=== PATIENT | female | born 1955 | race African-American/Black ===

== ENCOUNTER 2019-11-09 03:41 | Inpatient (IN) | payer MEDICARE ==
[2019-11-09] VITALS (24 sets, daily range): BP systolic 82–134; BP diastolic 55–80
[~2019-11-09] VITALS: Ht 167.6 cm; Wt 95.9 kg
[2019-11-09] MEDS ORDERED: INSULIN REGULAR VIAL 100 UNIT in IV NORMAL SALINE 100ML 100 ML IV PRN (04:30)
[2019-11-09] MEDS ORDERED: IV NORMAL SALINE 1000ML BAG 1,000 ML IV ONE ×2 (04:30→05:00)
[2019-11-09] MEDS ORDERED: IV NORMAL SALINE 1000ML BAG 1,000 ML IV SCH (04:30)
[2019-11-09 04:31] LABS: BASO % 0 % (0-3); EOS % 0 % (0-3); HEMATOCRIT 37.9 % (36.0-47.0); HEMOGLOBIN 12.6 g/dL (12.0-15.5); LYMPH # 1.4 x10^3/uL (1.0-4.8); LYMPH % 16 % (24-48); MEAN CORPUSCULAR HEMOGLOBIN 31 pg (25-35); MEAN CORPUSCULAR HGB CONC 33 g/dL (31-37); MEAN CORPUSCULAR VOLUME 93 fL (79-100); MONO # 0.3 x10^3/uL (0.0-1.1); MONO % 3 % (0-9); NEUT # 7.5 x10^3/uL (1.8-7.7); NEUT % 81 % (31-73); PLATELET COUNT 322 x10^3/uL (140-400); RED BLOOD COUNT 4.07 x10^6/uL (3.50-5.40); RED CELL DISTRIBUTION WIDTH 13.7 % (11.5-14.5); WHITE BLOOD COUNT 9.2 x10^3/uL (4.0-11.0)
[2019-11-09 04:46] LABS: ALBUMIN 4.3 g/dL (3.4-5.0); CALCIUM 9.6 mg/dL (8.5-10.1); CREATININE 3.6 mg/dL (0.6-1.0); GFR 15.4; POTASSIUM 5.5 mmol/L (3.5-5.1); TOTAL BILIRUBIN 0.3 mg/dL (0.2-1.0); TOTAL PROTEIN 8.8 g/dL (6.4-8.2)
--- NOTE | 2019-11-09 06:10 | NUR ---
[id number] Received patient to room 109 from [facility] ED via ambulance at 0330. Admission complete and all monitors applied. F/C inserted with 300cc clear yellow urine returned immediately. SCDs applied. Oriented to room, unit routines, and hospital. Dr Rodriguez called with update and critical results. Orders received and implemented. New 20g IV started to RFA per relief charge nurse. NS bolus #1 complete. Bolus #2 started. Hourly blood glucose per GlucoStabilizer started.
[2019-11-09] MEDS ORDERED: SODIUM BICARBONATE VIAL 50 MEQ in IV 1/2 NORMAL SALINE 1,000 ML IV PRN (06:23)
[2019-11-09] MEDS ORDERED: SODIUM PHOSPHATE 10 MMOL in IV NORMAL SALINE 100ML 250 ML IV PRN (06:30)
[2019-11-09] MEDS ORDERED: SODIUM PHOSPHATE 40 MMOL in IV NORMAL SALINE 500ML BAG 500 ML IV PRN (06:30)
[2019-11-09] MEDS ORDERED: POTASSIUM CHLORIDE 10MEQ 100 ML IV PRN ×3 (06:30)
[2019-11-09] MEDS ORDERED: SODIUM PHOSPHATE 20 MMOL in IV NORMAL SALINE 250ML 250 ML IV PRN (06:30)
[2019-11-09 07:09] LABS: ALBUMIN 3.8 g/dL (3.4-5.0); DIRECT BILIRUBIN 0.1 mg/dL (0.0-0.2); MAGNESIUM 3.6 mg/dL (1.8-2.4); PHOSPHORUS 3.9 mg/dL (2.6-4.7); TOTAL BILIRUBIN 0.2 mg/dL (0.2-1.0); TOTAL PROTEIN 7.8 g/dL (6.4-8.2)
[2019-11-09] MEDS: ASPIRIN CHEWABLE 81 MG TABLET. PO SCH (08:00)
[2019-11-09 08:43] LABS: CALCIUM 8.7 mg/dL (8.5-10.1); CREATININE 3.3 mg/dL (0.6-1.0); MAGNESIUM 3.3 mg/dL (1.8-2.4); PHOSPHORUS 3.5 mg/dL (2.6-4.7); POTASSIUM 4.7 mmol/L (3.5-5.1)
[2019-11-09] MEDS: MAGNESIUM SULFATE 4GM 100 ML IV SCH (09:15)
[2019-11-09] MEDS: IV 1/2 NORMAL SALINE 1,000 ML IV SCH ×3 (09:17→17:21)
[2019-11-09] MEDS: EZETIMIBE 10 MG TABLET. PO SCH (09:18)
[2019-11-09] MEDS: POTASSIUM CHLORIDE 10MEQ 100 ML IV SCH ×2 (09:24→10:17)
[2019-11-09] MEDS: ONDANSETRON PF 4 MG/2 ML VIAL. IVP PRN ×2 (10:09→17:59)
[2019-11-09] MEDS: CARVEDILOL 12.5 MG TABLET. PO SCH ×2 (10:09→17:21)
--- NOTE | 2019-11-09 11:48 | HP ---
ADMIT DATE: 11/09/2019 HISTORY OF PRESENT ILLNESS: The patient is a 64-year-old -[place] female patient who presented to the Emergency Room of [facility] with a 3-day history of diarrhea as well as generalized weakness, sweats. Also she has polyuria and polydipsia and patient stated that she has been drinking Pepsi and lemon and chinik, water does not taste good. She was evaluated in the Emergency Room and was found to have extremely high blood sugar of 1480. She has also had hyperkalemia as well as impaired kidney function with a BUN of 70, creatinine was 3.9. Her CBC was within normal range and her blood gases showed a pH of 7.32, pCO2 of 34, pO2 of 79, bicarbonate was 17 and oxygen saturation was 95% on FiO2 of 21%. Her urinalysis showed that there is large amount of glucose, trace of ketones, moderate amount of blood, trace of protein and her toxic screen showed only small amount of acetone. Her CT scan of the head was unremarkable and acute abdomen series showed that the patient has AICDs visualized. The cardiac silhouette is otherwise unremarkable. Degenerative changes of the spine. No focal airspace consolidation to suggest pneumonia. There are scattered throughout the large and small bowel is nonspecific, but not grossly obstructive pattern with some scattered mildly prominent air filled loops of bowel. The patient was started on insulin drip, given a liter of fluid and was transferred to [facility] ICU to continue with fluid replacement. Continue with insulin drip. PAST MEDICAL HISTORY: Significant for hypertension, hyperlipidemia, coronary artery disease, status post myocardial infarction in 2004 and 2006, she has also an AICD in 2014. She is not known to have type 2 diabetes. PAST SURGICAL HISTORY: Significant for AICD, left heart catheterization and stent deployment as well on left side oophorectomy. ALLERGIES: SHE IS ALLERGIC TO PENICILLIN AND CODEINE. MEDICATIONS: She is currently on following medications, Zetia 10 mg once a day, atorvastatin calcium 80 mg at bedtime, carvedilol 25 mg twice a day, chewable aspirin 81 mg once a day. She is on spironolactone 25 mg once a day. REVIEW OF SYSTEMS: As per history of present illness. The patient denied any blurring of vision, cataract, glaucoma or macular degeneration. Denied any earache, tinnitus or sensorineural deafness. Denied any nosebleeds, stuffy nose or postnasal drip. Denied any sore throat, sore tongue, toothache, hoarseness of voice or difficulty swallowing. Did complain of nausea, but no vomiting. Did have recurrent bouts of diarrhea for the last 3 days. Denied any abdominal pain. Denied any dysuria. Did complain of frequency, but denied any hematuria. Denied any chest pain, shortness of breath, orthopnea, paroxysmal nocturnal dyspnea. Denied any cough, phlegm or hemoptysis. FAMILY HISTORY: Strongly positive for diabetes, hypertension and cancer. She has about 12 siblings, 4 of them of cancer. SOCIAL HISTORY: , lives alone. She has 2 daughters. She does not smoke, drink alcohol or use any recreational drugs. She worked at the [employer] for about 25 years, she retired based on medical disability. PHYSICAL EXAMINATION: GENERAL: On arrival to the Emergency Room, she looked well and was clearly in no apparent respiratory distress. Slightly pale, but no jaundice, cyanosis or thyromegaly. No jugular venous distention. No limb edema. VITAL SIGNS: Her heart rate was 63, blood pressure was 136/76, temperature was 98.2, respiratory rate 21 and oxygen saturation was 96% on room air. HEAD, EYES, EARS, NOSE AND THROAT: Showed normocephalic, atraumatic. NECK: Supple. HEART: Showed normal first and second heart sounds with no gallop, rub or murmur. CHEST: Clear to auscultation. No crepitation or rhonchi. ABDOMEN: Distended, soft, nontender. NEUROLOGIC: She is awake, alert, and at times confused. All her cranial nerves are intact. EXTREMITIES: She moves extremities without difficulty. LABORATORY DATA: Her lab work on arrival to the Emergency Room of [facility] showed a serum sodium of 124, potassium 6.9, chloride 85, bicarbonate 20, anion gap of 19, BUN 70, creatinine 3.9, estimated GFR was 49 mL per minute. Her glucose was 1480, calcium was 10. Total bilirubin, AST, ALT were normal. Alkaline phosphatase slightly elevated. Troponin was 0.032. Total protein was 9, albumin was 4.7. Lipase was 121. Her white cell count was 8600, hemoglobin 12.9, hematocrit 38, MCV 91, and platelet count 325,000. Her arterial blood gases showed a pH of 7.32, pCO2 of 34, pO2 of 79, bicarbonate 17 and oxygen saturation was 95% on room air. Her urine was yellow, clear with a pH of 5, specific gravity 1.005. There was a trace of protein, large amount of glucose, trace of ketones, moderate amount of blood, negative for nitrite and leukocyte esterase. There are rare rbc's, occasional wbc's, and no bacteria. Her toxic screen showed small amount of acetone. CT scan of the head showed no acute intracranial hemorrhage, scattered regions of low attenuation within the white matter, nonspecific in nature, but frequently secondary to chronic small vessel ischemic disease, she has prominence of ventricles and sulci, which is frequently secondary to age-related volume loss. ASSESSMENT AND PLAN: In summary, this is a 64-year-old -[place]ovenian female patient who presented with 3-day history of nausea, generalized weakness and diarrhea. She has been drinking a lot of Pepsi and lemon and chinik and on presentation to the Emergency Room of [facility] she was found to have marked hyperglycemia with a blood sugar of 1480 mg/dL. She claims she is not known to have diabetes before, although she has a strong family history of diabetes. She has dilutional hyponatremia, hyperkalemia, acute on chronic kidney injury. Her creatinine on 03/2018 was 1.3. I do not have any other lab work to compare. She normally follows with Dr. Iverson and does not have any primary care physician. Plan is to continue with insulin drip. Continue with aggressive rehydration and monitor her lab work closely. By the time she arrived to the Emergency Room her sodium has risen to 141, potassium down to 4.7. Her anion gap is now 13, BUN down to 66 and creatinine was 3.3. We inserted a Waite catheter for accurate I's and O's and did consult Dr. Garcia to assist with management of her acute renal failure. I held her spironolactone and she is not on any other nephrotoxic medication. SHAWN KRAMER MD DR: WILI/lebron JOB#: [id number] / [id number]
[2019-11-09 12:26] LABS: CALCIUM 8.6 mg/dL (8.5-10.1); CREATININE 2.9 mg/dL (0.6-1.0); GFR 19.7; MAGNESIUM 3.1 mg/dL (1.8-2.4); PHOSPHORUS 3.1 mg/dL (2.6-4.7); POTASSIUM 5.6 mmol/L (3.5-5.1)
[2019-11-09 12:35] LABS: BILIRUBIN,URINE SMALL (NEG); CLARITY,URINE CLEAR; COLOR,URINE YELLOW; NITRITE,URINE NEGATIVE (NEG); PROTEIN,URINE 30 mg/dL (NEG-TRACE); UROBILINOGEN,URINE 0.2 mg/dL (0.2 mg/dL)
[2019-11-09 13:04] LABS: AMORPHOUS SEDIMENT,UR PRESENT /HPF; BACTERIA,URINE FEW /HPF (0-FEW); GRANULAR CASTS,URINE MODERATE /HPF; HYALINE CASTS, URINE FEW /HPF; SQUAMOUS EPITHELIAL CELL,UR MOD /LPF
--- NOTE | 2019-11-09 13:30 | NUR ---
SS following for discharge planning. SS reviewed pt chart and discussed with pt RN. Pt is from home alone and is currently requiring oxygen. SS will continue to follow for discharge planning.
[2019-11-09] MEDS ORDERED: DEXTROSE 50% 25 GM / 50ML DISP.SYRIN. IV PRN (15:30)
--- NOTE | 2019-11-09 15:37 | PDOC2 ---
CONSULT Date of Consult Date of Consult DATE: 11/09/19 TIME: 15:28 History of Present Illness Reason for Visit: THIS IS A 64 YR OLD AAF WHO CAME TO THE ER IN [place] AND THEN TRANSFERRED HERE. SHE WENT IN DUE TO A FEW DAY HX OF DIARRHEA, WEAKNESS AND SWEATS. ALSO HAD INCREASED THIRST AND POLYURIA. BG NEARLY 1500. NOTED TO HAVE HYPERKALEMIA, ACIDEMIA AND CR OF 3.9. NO KNOWN CKD REPORTED. NO NEPHROTOXINS NOTED. UA NOTABLE FOR KETONURIA. SHE HAS NO KNOWN HX OF DM. NO HX OF ANY KIDNEY OR BLADDER SURGERIES HEMATURIA DYSURIA OR FREQUENCY Past Medical History Cardiovascular: CAD, HTN, Hyperlipidemia Infectious disease: No pertinent hx Renal/: No pertinent hx Dermatology: No pertinent hx Past Surgical History Past Surgical History PTCA AND STENT, LEFT OOPHORECTOMY Past Surgical History: Pacemaker Family History Family History: No Significant Social History No ALCOHOL: none Drugs: None Lives: with Family Current Medications Current Medications Current Medications Insulin Human Regular 100 unit/ Sodium Chloride 101 ml @ 0 mls/hr CONT PRN IV SEE I/O RECORD Last administered on 11/09/19at 08:03; Start 11/09/19 at 04:30 Sodium Chloride 1,000 ml @ 250 mls/hr Q4H IV Last administered on 11/09/19at 04:30; Start 11/09/19 at 04:30; Stop 11/09/19 at 09:04; Status DC Sodium Chloride 1,000 ml @ 1,000 mls/hr 1X ONCE IV Last administered on 11/09/19at 04:00; Start 11/09/19 at 04:30; Stop 11/09/19 at 05:29; Status DC Aspirin (Aspirin Chewable) 81 mg DAILYWBKFT PO Last administered on 11/09/19at 08:00; Start 11/09/19 at 08:00 Atorvastatin Calcium (Lipitor) 80 mg QHS PO ; Start 11/09/19 at 21:00 Carvedilol (Coreg) 25 mg BIDWMEALS PO Last administered on 11/09/19at 10:09; Start 11/09/19 at 08:00 EZETIMIBE (Zetia) 10 mg DAILY PO Last administered on 11/09/19at 09:18; Start 11/09/19 at 09:00 Sodium Chloride 1,000 ml @ 1,000 mls/hr 1X ONCE IV Last administered on 11/09/19at 06:28; Start 11/09/19 at 05:00; Stop 11/09/19 at 05:59; Status DC Potassium Chloride/Water 100 ml @ 100 mls/hr PRN Q1HR PRN IV SEE COMMENTS; Start 11/09/19 at 06:30 Potassium Chloride/Water 100 ml @ 100 mls/hr PRN Q1HR PRN IV SEE COMMENTS; Start 11/09/19 at 06:30 Potassium Chloride/Water 100 ml @ 100 mls/hr PRN Q1HR PRN IV SEE COMMENTS; Start 11/09/19 at 06:30 Magnesium Sulfate 100 ml @ 25 mls/hr DAILY IV ; Start 11/09/19 at 09:00; Stop 11/12/19 at 08:59 Sodium Bicarbonate 50 meq/Sodium Chloride 1,050 ml @ 500 mls/hr Q2H6M PRN IV SEE COMMENTS; Start 11/09/19 at 06:23 Sodium Phosphate 40 mmol/Sodium Chloride 513.3333 ml @ 83.3 mls/hr 1X PRN PRN IV SEE COMMENTS; Start 11/09/19 at 06:30 Sodium Phosphate 20 mmol/Sodium Chloride 256.6667 ml @ 62.5 mls/hr 1X PRN PRN IV SEE COMMENTS; Start 11/09/19 at 06:30 Sodium Phosphate 10 mmol/Sodium Chloride 253.3333 ml @ 25 mls/hr 1X PRN PRN IV SEE COMMENTS; Start 11/09/19 at 06:30 Sodium Chloride 1,000 ml @ 250 mls/hr Q4H IV Last administered on 11/09/19at 12:54; Start 11/09/19 at 09:15 Potassium Chloride/Water 100 ml @ 100 mls/hr Q1H IV Last administered on 11/09/19at 10:17; Start 11/09/19 at 10:00; Stop 11/09/19 at 11:59; Status DC Ondansetron HCl (Zofran) 4 mg PRN Q6HRS PRN IVP NAUSEA/VOMITING Last administered on 11/09/19at 10:09; Start 11/09/19 at 09:45 Allergies Allergies: Coded Allergies: Penicillins (Verified Allergy, Unknown, 11/09/19) codeine (Verified Allergy, Unknown, 11/09/19) ROS General: YES: Fatigue, Malaise PSYCHOLOGICAL ROS: YES: Anxiety Eyes: Yes Blurry vision, Yes Decreased vision HEENT: YES: [place] ALLERGY AND IMMUNOLOGY: YES: Seasonal Allergies ENDOCRINE: YES: Temperature Intolerance Respiratory: YES: Cough Gastrointestinal: Yes Nausea, Yes Diarrhea Genitourinary: YES Frequency, YES Other Musculoskeletal: Yes Muscular Weakness Neurological: Yes Weakness Skin: Yes Dry Skin Physical Exam General: Alert, Oriented X3, Cooperative, No acute distress HEENT: Atraumatic, PERRLA, EOMI, Other (DRY MUCOSA) Lungs: Clear to auscultation Heart: Regular rate Abdomen: Normal bowel sounds, Soft, No tenderness Extremities: No cyanosis Skin: No breakdown Neuro: Normal speech, Cranial nerves 3-12 NL Psych/Mental Status: Mental status NL, Mood NL MUSCULOSKELETAL: No joint tenderness, No deformity, No swelling Vitals VITALS Vital Signs Date Time Temp Pulse Resp B/P (MAP) Pulse Ox O2 Delivery O2 Flow Rate FiO2 11/09/19 14:00 62 20 98/62 (74) 100 Nasal Cannula 2.0 11/09/19 12:00 97.8 97.8 Labs Labs Laboratory Tests Test 11/09/19 04:10 11/09/19 04:25 11/09/19 06:07 11/09/19 08:10 White Blood Count 9.2 x10^3/uL (4.0-11.0) Red Blood Count 4.07 x10^6/uL (3.50-5.40) Hemoglobin 12.6 g/dL (12.0-15.5) Hematocrit 37.9 % (36.0-47.0) Mean Corpuscular Volume 93 fL (79-100) Mean Corpuscular Hemoglobin 31 pg (25-35) Mean Corpuscular Hemoglobin Concent 33 g/dL (31-37) Red Cell Distribution Width 13.7 % (11.5-14.5) Platelet Count 322 x10^3/uL (140-400) Neutrophils (%) (Auto) 81 % (31-73) Lymphocytes (%) (Auto) 16 % (24-48) Monocytes (%) (Auto) 3 % (0-9) Eosinophils (%) (Auto) 0 % (0-3) Basophils (%) (Auto) 0 % (0-3) Neutrophils # (Auto) 7.5 x10^3/uL (1.8-7.7) Lymphocytes # (Auto) 1.4 x10^3/uL (1.0-4.8) Monocytes # (Auto) 0.3 x10^3/uL (0.0-1.1) Eosinophils # (Auto) 0.0 x10^3/uL (0.0-0.7) Basophils # (Auto) 0.0 x10^3/uL (0.0-0.2) Sodium Level 130 mmol/L (136-145) 141 mmol/L (136-145) Potassium Level 5.5 mmol/L (3.5-5.1) 4.7 mmol/L (3.5-5.1) Chloride Level 94 mmol/L (98-107) 106 mmol/L (98-107) Carbon Dioxide Level 19 mmol/L (21-32) 22 mmol/L (21-32) Anion Gap 17 (6-14) 13 (6-14) Blood Urea Nitrogen 76 mg/dL (7-20) 66 mg/dL (7-20) Creatinine 3.6 mg/dL (0.6-1.0) 3.3 mg/dL (0.6-1.0) Estimated GFR (Cockcroft-Gault) 15.4 17.0 BUN/Creatinine Ratio 21 (6-20) Glucose Level 1263 mg/dL (70-99) 1123 mg/dL (70-99) 783 mg/dL (70-99) Calcium Level 9.6 mg/dL (8.5-10.1) 8.7 mg/dL (8.5-10.1) Total Bilirubin 0.3 mg/dL (0.2-1.0) 0.2 mg/dL (0.2-1.0) Aspartate Amino Transf (AST/SGOT) 16 U/L (15-37) 15 U/L (15-37) Alanine Aminotransferase (ALT/SGPT) 16 U/L (14-59) 15 U/L (14-59) Alkaline Phosphatase 157 U/L (46-116) 136 U/L (46-116) Creatine Kinase 738 U/L (26-192) Total Protein 8.8 g/dL (6.4-8.2) 7.8 g/dL (6.4-8.2) Albumin 4.3 g/dL (3.4-5.0) 3.8 g/dL (3.4-5.0) Albumin/Globulin Ratio 1.0 (1.0-1.7) Lactic Acid Level 2.2 mmol/L (0.4-2.0) 2.7 mmol/L (0.4-2.0) Phosphorus Level 3.9 mg/dL (2.6-4.7) 3.5 mg/dL (2.6-4.7) Magnesium Level 3.6 mg/dL (1.8-2.4) 3.3 mg/dL (1.8-2.4) Direct Bilirubin 0.1 mg/dL (0.0-0.2) Test 11/09/19 09:57 11/09/19 11:06 11/09/19 12:05 11/09/19 12:12 Glucose (Fingerstick) 515 mg/dL (70-99) 441 mg/dL (70-99) 436 mg/dL (70-99) Sodium Level 143 mmol/L (136-145) Potassium Level 5.6 mmol/L (3.5-5.1) Chloride Level 108 mmol/L (98-107) Carbon Dioxide Level 26 mmol/L (21-32) Anion Gap 9 (6-14) Blood Urea Nitrogen 62 mg/dL (7-20) Creatinine 2.9 mg/dL (0.6-1.0) Estimated GFR (Cockcroft-Gault) 19.7 Glucose Level 444 mg/dL (70-99) Calcium Level 8.6 mg/dL (8.5-10.1) Phosphorus Level 3.1 mg/dL (2.6-4.7) Magnesium Level 3.1 mg/dL (1.8-2.4) Test 11/09/19 12:15 11/09/19 13:37 11/09/19 14:39 Urine Collection Type Unknown Urine Color Yellow Urine Clarity Clear Urine pH 5.0 (<5.0-8.0) Urine Specific [place] >=1.030 (1.000-1.030) Urine Protein 30 mg/dL (NEG-TRACE) Urine Glucose (UA) >=1000 mg/dL (NEG) Urine Ketones (Stick) Negative mg/dL (NEG) Urine Blood Moderate (NEG) Urine Nitrite Negative (NEG) Urine Bilirubin Small (NEG) Urine Urobilinogen Dipstick 0.2 mg/dL (0.2 mg/dL) Urine Leukocyte Esterase Trace (NEG) Urine RBC 1-2 /HPF (0-2) Urine WBC 5-10 /HPF (0-4) Urine Squamous Epithelial Cells Mod /LPF Urine Amorphous Sediment Present /HPF Urine Bacteria Few /HPF (0-FEW) Urine Hyaline Casts Few /HPF Urine Granular Casts Moderate /HPF Urine Mucus Slight /LPF Glucose (Fingerstick) 331 mg/dL (70-99) 263 mg/dL (70-99) Laboratory Tests Test 11/09/19 04:10 11/09/19 04:25 11/09/19 06:07 11/09/19 08:10 White Blood Count 9.2 x10^3/uL (4.0-11.0) Red Blood Count 4.07 x10^6/uL (3.50-5.40) Hemoglobin 12.6 g/dL (12.0-15.5) Hematocrit 37.9 % (36.0-47.0) Mean Corpuscular Volume 93 fL (79-100) Mean Corpuscular Hemoglobin 31 pg (25-35) Mean Corpuscular Hemoglobin Concent 33 g/dL (31-37) Red Cell Distribution Width 13.7 % (11.5-14.5) Platelet Count 322 x10^3/uL (140-400) Neutrophils (%) (Auto) 81 % (31-73) Lymphocytes (%) (Auto) 16 % (24-48) Monocytes (%) (Auto) 3 % (0-9) Eosinophils (%) (Auto) 0 % (0-3) Basophils (%) (Auto) 0 % (0-3) Neutrophils # (Auto) 7.5 x10^3/uL (1.8-7.7) Lymphocytes # (Auto) 1.4 x10^3/uL (1.0-4.8) Monocytes # (Auto) 0.3 x10^3/uL (0.0-1.1) Eosinophils # (Auto) 0.0 x10^3/uL (0.0-0.7) Basophils # (Auto) 0.0 x10^3/uL (0.0-0.2) Sodium Level 130 mmol/L (136-145) 141 mmol/L (136-145) Potassium Level 5.5 mmol/L (3.5-5.1) 4.7 mmol/L (3.5-5.1) Chloride Level 94 mmol/L (98-107) 106 mmol/L (98-107) Carbon Dioxide Level 19 mmol/L (21-32) 22 mmol/L (21-32) Anion Gap 17 (6-14) 13 (6-14) Blood Urea Nitrogen 76 mg/dL (7-20) 66 mg/dL (7-20) Creatinine 3.6 mg/dL (0.6-1.0) 3.3 mg/dL (0.6-1.0) Estimated GFR (Cockcroft-Gault) 15.4 17.0 BUN/Creatinine Ratio 21 (6-20) Glucose Level 1263 mg/dL (70-99) 1123 mg/dL (70-99) 783 mg/dL (70-99) Calcium Level 9.6 mg/dL (8.5-10.1) 8.7 mg/dL (8.5-10.1) Total Bilirubin 0.3 mg/dL (0.2-1.0) 0.2 mg/dL (0.2-1.0) Aspartate Amino Transf (AST/SGOT) 16 U/L (15-37) 15 U/L (15-37) Alanine Aminotransferase (ALT/SGPT) 16 U/L (14-59) 15 U/L (14-59) Alkaline Phosphatase 157 U/L (46-116) 136 U/L (46-116) Creatine Kinase 738 U/L (26-192) Total Protein 8.8 g/dL (6.4-8.2) 7.8 g/dL (6.4-8.2) Albumin 4.3 g/dL (3.4-5.0) 3.8 g/dL (3.4-5.0) Albumin/Globulin Ratio 1.0 (1.0-1.7) Lactic Acid Level 2.2 mmol/L (0.4-2.0) 2.7 mmol/L (0.4-2.0) Phosphorus Level 3.9 mg/dL (2.6-4.7) 3.5 mg/dL (2.6-4.7) Magnesium Level 3.6 mg/dL (1.8-2.4) 3.3 mg/dL (1.8-2.4) Direct Bilirubin 0.1 mg/dL (0.0-0.2) Test 11/09/19 09:57 11/09/19 11:06 11/09/19 12:05 11/09/19 12:12 Glucose (Fingerstick) 515 mg/dL (70-99) 441 mg/dL (70-99) 436 mg/dL (70-99) Sodium Level 143 mmol/L (136-145) Potassium Level 5.6 mmol/L (3.5-5.1) Chloride Level 108 mmol/L (98-107) Carbon Dioxide Level 26 mmol/L (21-32) Anion Gap 9 (6-14) Blood Urea Nitrogen 62 mg/dL (7-20) Creatinine 2.9 mg/dL (0.6-1.0) Estimated GFR (Cockcroft-Gault) 19.7 Glucose Level 444 mg/dL (70-99) Calcium Level 8.6 mg/dL (8.5-10.1) Phosphorus Level 3.1 mg/dL (2.6-4.7) Magnesium Level 3.1 mg/dL (1.8-2.4) Test 11/09/19 12:15 11/09/19 13:37 11/09/19 14:39 Urine Collection Type Unknown Urine Color Yellow Urine Clarity Clear Urine pH 5.0 (<5.0-8.0) Urine Specific Hilton >=1.030 (1.000-1.030) Urine Protein 30 mg/dL (NEG-TRACE) Urine Glucose (UA) >=1000 mg/dL (NEG) Urine Ketones (Stick) Negative mg/dL (NEG) Urine Blood Moderate (NEG) Urine Nitrite Negative (NEG) Urine Bilirubin Small (NEG) Urine Urobilinogen Dipstick 0.2 mg/dL (0.2 mg/dL) Urine Leukocyte Esterase Trace (NEG) Urine RBC 1-2 /HPF (0-2) Urine WBC 5-10 /HPF (0-4) Urine Squamous Epithelial Cells Mod /LPF Urine Amorphous Sediment Present /HPF Urine Bacteria Few /HPF (0-FEW) Urine Hyaline Casts Few /HPF Urine Granular Casts Moderate /HPF Urine Mucus Slight /LPF Glucose (Fingerstick) 331 mg/dL (70-99) 263 mg/dL (70-99) Assessment/Plan Assessment/Plan IMP NEW ONSET DM DKA ACIDEMIA DEHYDRATION HYPOVOLEMIA HYPERKALEMIA FARHAT HX OF LCA-MNSFN-UFO PLAN HOLD HER ANTIHYPERTENSIVES VOLUME EXPAND HYDRATION INSULIN GTT F/U UA FOR KETONURIA CORRECT ELECTROLYTES RENAL SONOGRAM IF RENAL FXN FAILS TO IMPROVE WILL FOLLOW D/W ATTENDING ANNIE YOUNG MD Nov 09, 2019 15:37
[2019-11-09] MEDS: IV NORMAL SALINE 1000ML BAG 1,000 ML IV SCH (15:52)
[2019-11-09] MEDS ORDERED: INSULIN GLARGINE SYRINGE. SQ SCH (16:00)
[2019-11-09 16:29] LABS: CALCIUM 8.5 mg/dL (8.5-10.1); CREATININE 2.5 mg/dL (0.6-1.0); GFR 23.4; PHOSPHORUS 2.7 mg/dL (2.6-4.7)
[2019-11-09] MEDS: INSULIN LISPRO 300 UNITS/3 ML VIAL. SQ SCH (17:42)
[2019-11-09] MEDS: ATORVASTATIN CALCIUM 40 MG TABLET. PO SCH (20:10)
[2019-11-10] VITALS (17 sets, daily range): BP systolic 75–136; BP diastolic 47–66
[2019-11-10] MEDS: IV NORMAL SALINE 1000ML BAG 1,000 ML IV SCH ×2 (02:32→12:46)
[2019-11-10 05:25] LABS: HEMATOCRIT 30.4 % (36.0-47.0); HEMOGLOBIN 10.3 g/dL (12.0-15.5); RED BLOOD COUNT 3.46 x10^6/uL (3.50-5.40); RED CELL DISTRIBUTION WIDTH 13.3 % (11.5-14.5)
[2019-11-10 05:59] LABS: CALCIUM 7.8 mg/dL (8.5-10.1); CREATININE 2.2 mg/dL (0.6-1.0); GFR 27.1; MAGNESIUM 2.3 mg/dL (1.8-2.4); PHOSPHORUS 2.3 mg/dL (2.6-4.7); POTASSIUM 5.2 mmol/L (3.5-5.1)
[2019-11-10] MEDS: CARVEDILOL 12.5 MG TABLET. PO SCH ×2 (08:29→17:29)
[2019-11-10] MEDS: ASPIRIN CHEWABLE 81 MG TABLET. PO SCH (08:29)
[2019-11-10] MEDS: EZETIMIBE 10 MG TABLET. PO SCH (08:29)
[2019-11-10] MEDS: INSULIN LISPRO 300 UNITS/3 ML VIAL. SQ SCH ×5 (08:33→17:34)
[2019-11-10] MEDS: MAGNESIUM SULFATE 4GM 100 ML IV SCH (09:00)
--- NOTE | 2019-11-10 10:47 | PDOC ---
Renal-Progress Notes Subjective Notes Notes NO NEW COMPLAINTS History of Present Illness Hx of present illness IMPROVED Vitals Vitals Vital Signs Date Time Temp Pulse Resp B/P (MAP) Pulse Ox O2 Delivery O2 Flow Rate FiO2 11/10/19 08:29 65 108/57 11/10/19 07:00 98.1 18 100 Nasal Cannula 2.0 98.1 Weight Weight [ ] I.O. Intake and Output Intake and Output 11/10/19 07:00 Intake Total 8228.05 ml Output Total 1020 ml Balance 7208.05 ml Intake Oral 1680 ml IV Total 5812.05 ml Blood Product IV Normal Saline Flush 736 ml Output Urine Total 1020 ml Labs Labs Laboratory Tests Test 11/09/19 11:06 11/09/19 12:05 11/09/19 12:12 11/09/19 12:15 Glucose (Fingerstick) 441 mg/dL (70-99) 436 mg/dL (70-99) Sodium Level 143 mmol/L (136-145) Potassium Level 5.6 mmol/L (3.5-5.1) Chloride Level 108 mmol/L (98-107) Carbon Dioxide Level 26 mmol/L (21-32) Anion Gap 9 (6-14) Blood Urea Nitrogen 62 mg/dL (7-20) Creatinine 2.9 mg/dL (0.6-1.0) Estimated GFR (Cockcroft-Gault) 19.7 Glucose Level 444 mg/dL (70-99) Calcium Level 8.6 mg/dL (8.5-10.1) Phosphorus Level 3.1 mg/dL (2.6-4.7) Magnesium Level 3.1 mg/dL (1.8-2.4) Urine Collection Type Unknown Urine Color Yellow Urine Clarity Clear Urine pH 5.0 (<5.0-8.0) Urine Specific [place] >=1.030 (1.000-1.030) Urine Protein 30 mg/dL (NEG-TRACE) Urine Glucose (UA) >=1000 mg/dL (NEG) Urine Ketones (Stick) Negative mg/dL (NEG) Urine Blood Moderate (NEG) Urine Nitrite Negative (NEG) Urine Bilirubin Small (NEG) Urine Urobilinogen Dipstick 0.2 mg/dL (0.2 mg/dL) Urine Leukocyte Esterase Trace (NEG) Urine RBC 1-2 /HPF (0-2) Urine WBC 5-10 /HPF (0-4) Urine Squamous Epithelial Cells Mod /LPF Urine Amorphous Sediment Present /HPF Urine Bacteria Few /HPF (0-FEW) Urine Hyaline Casts Few /HPF Urine Granular Casts Moderate /HPF Urine Mucus Slight /LPF Test 11/09/19 13:37 11/09/19 14:39 11/09/19 15:50 11/09/19 16:10 Glucose (Fingerstick) 331 mg/dL (70-99) 263 mg/dL (70-99) 200 mg/dL (70-99) Sodium Level 142 mmol/L (136-145) Potassium Level 5.0 mmol/L (3.5-5.1) Chloride Level 110 mmol/L (98-107) Carbon Dioxide Level 26 mmol/L (21-32) Anion Gap 6 (6-14) Blood Urea Nitrogen 59 mg/dL (7-20) Creatinine 2.5 mg/dL (0.6-1.0) Estimated GFR (Cockcroft-Gault) 23.4 Glucose Level 213 mg/dL (70-99) Calcium Level 8.5 mg/dL (8.5-10.1) Phosphorus Level 2.7 mg/dL (2.6-4.7) Magnesium Level 3.0 mg/dL (1.8-2.4) Test 11/09/19 20:07 11/09/19 22:10 11/10/19 04:55 11/10/19 08:23 Glucose (Fingerstick) 188 mg/dL (70-99) 191 mg/dL (70-99) 368 mg/dL (70-99) White Blood Count 12.0 x10^3/uL (4.0-11.0) Red Blood Count 3.46 x10^6/uL (3.50-5.40) Hemoglobin 10.3 g/dL (12.0-15.5) Hematocrit 30.4 % (36.0-47.0) Mean Corpuscular Volume 88 fL (79-100) Mean Corpuscular Hemoglobin 30 pg (25-35) Mean Corpuscular Hemoglobin Concent 34 g/dL (31-37) Red Cell Distribution Width 13.3 % (11.5-14.5) Platelet Count 246 x10^3/uL (140-400) Sodium Level 140 mmol/L (136-145) Potassium Level 5.2 mmol/L (3.5-5.1) Chloride Level 108 mmol/L (98-107) Carbon Dioxide Level 22 mmol/L (21-32) Anion Gap 10 (6-14) Blood Urea Nitrogen 48 mg/dL (7-20) Creatinine 2.2 mg/dL (0.6-1.0) Estimated GFR (Cockcroft-Gault) 27.1 Glucose Level 331 mg/dL (70-99) Calcium Level 7.8 mg/dL (8.5-10.1) Phosphorus Level 2.3 mg/dL (2.6-4.7) Magnesium Level 2.3 mg/dL (1.8-2.4) Micro Micro Microbiology 11/09/19 Urine Culture - Final, Complete Review of Systems Constitutional: yes: alert, oriented Ears/Nose/Throat: Yes: no symptom reported Eyes: Yes: no symptom reported Pulmonary: Yes no symptom reported Cardiovascular: Yes no symptom reported Gastrointestional: Yes: no symptom reported Genitourinary: Yes: no symptom reported Musculoskeletal: Yes: no symptom reported Skin: Yes no symptom reported Psychiatric/Neurological: Yes: no symptom reported Endocrine: Yes: no symptom reported Physical Exam General Appearance: no apparent distress Skin: warm Respiratory: bilateral CTA Heart: S1S2, RRR, no thrills Abdomen: soft, bowel sounds present Genitourinary: bladder flat Extremities: pulses present Neurology: alert, oriented Assessment Assessment IMP NEW ONSET DM DKA ACIDEMIA-RESOLVING DEHYDRATION HYPOVOLEMIA HYPERKALEMIA-STABLE FARHAT-IMPROVED CR OF 2.5 HX OF [id number] PLAN HOLD HER ANTIHYPERTENSIVES VOLUME EXPAND HYDRATION CONTROL BG F/U UA NEG FOR KETONURIA CORRECT ELECTROLYTES WILL FOLLOW ANNIE YOUNG MD Nov 10, 2019 10:46
[2019-11-10] MEDS: ONDANSETRON PF 4 MG/2 ML VIAL. IVP PRN (11:37)
--- NOTE | 2019-11-10 11:42 | PDOC2 ---
MARLYS MARTELL PHOTOGRAPHIC SPOTTER 11/10/19 1142: CARDIAC CONSULT DATE OF CONSULT Date of Consult DATE: 11/10/19 TIME: 11:33 REASON FOR CONSULT Reason for Consult: ICM s/p AICD REFERRING PHYSICIAN Referring Physician: Dr. Rodriguez SOURCE Source: Chart review, Patient HISTORY OF PRESENT ILLNESS HISTORY OF PRESENT ILLNESS This is a 64 yo female who initially presented to [facility] secondary to diarrhea and generalized weakness, sweats. Reports recent polyuria, polydyspia. Has been drinking pop only as water has not been tasting good. Noted with BS of 1480 at [facility]. Initial labs also notable for FARHAT, hyperkalemia. Pateint was transferred to [facility] for nephrology evaluation. Has a history of ICM s/p AICD, which prompted this consult. Follows with Dr. Iverson with [facility]. No reports of chest pain, palpitations, dizziness, diaphoresis, or LE edema. PAST MEDICAL HISTORY Cardiovascular: CAD, CHF (ICM), HTN Endocrine: Diabetes (borderline (review of chart with A1C 6.4, 6.5 in 2013/ 2014)) PAST SURGICAL HISTORY Past Surgical History: Pacemaker (AICD) FAMILY HISTORY Family History: Coronary Artery Disease, Diabetes, Hypertension SOCIAL HISTORY Smoke: No ALCOHOL: none Drugs: None Lives: Alone CURRENT MEDICATIONS CURRENT MEDICATIONS Current Medications Medications (Trade) Dose Ordered Sig/Chantale Route PRN Reason Start Time Stop Time Status Last Admin Dose Admin Atorvastatin Calcium (Lipitor) 80 mg QHS PO 11/09/19 21:00 11/09/19 20:10 Insulin Glargine (Lantus Syringe) 20 unit QHS SQ 11/09/19 16:00 11/09/19 15:53 Insulin Human Lispro (HumaLOG) 0-9 UNITS TIDWMEALS SQ 11/09/19 17:00 11/10/19 08:33 Sodium Chloride 1,000 ml @ 100 mls/hr Q10H IV 11/09/19 15:30 11/10/19 02:32 ALLERGIES ALLERGIES: Coded Allergies: Penicillins (Verified Allergy, Unknown, 11/09/19) codeine (Verified Allergy, Unknown, 11/09/19) ROS Review of System 14 point ROS conducted with pertinent positives noted above in HPI PHYSICAL EXAM General: Alert, Oriented X3, Cooperative, No acute distress HEENT: Atraumatic, Mucous membr. moist/pink Lungs: Clear to auscultation Heart: Regular rate, Normal S1, Normal S2 Abdomen: Soft, No tenderness Extremities: No edema, Normal pulses Neuro: Normal speech, Sensation intact Psych/Mental Status: Mental status NL, Mood NL MUSCULOSKELETAL: Osteoarthritic changes both hands VITALS/I&O VITALS/I&O: Vital Signs Date Time Temp Pulse Resp B/P (MAP) Pulse Ox O2 Delivery O2 Flow Rate FiO2 11/10/19 08:29 65 108/57 11/10/19 08:00 Nasal Cannula 2.0 11/10/19 08:00 18 100 11/10/19 07:00 98.1 98.1 I & O 11/09/19 11/09/19 11/10/19 15:00 23:00 07:00 Intake Total 680 ml 6572.05 ml 976 ml Output Total 500 ml 200 ml 320 ml Balance 180 ml 6372.05 ml 656 ml LABS Lab: Laboratory Tests Test 11/09/19 12:05 11/09/19 12:12 11/09/19 12:15 11/09/19 13:37 Sodium Level 143 mmol/L (136-145) Potassium Level 5.6 mmol/L (3.5-5.1) H Chloride Level 108 mmol/L (98-107) H Carbon Dioxide Level 26 mmol/L (21-32) Anion Gap 9 (6-14) Blood Urea Nitrogen 62 mg/dL (7-20) H Creatinine 2.9 mg/dL (0.6-1.0) H Estimated GFR (Cockcroft-Gault) 19.7 Glucose Level 444 mg/dL (70-99) H Calcium Level 8.6 mg/dL (8.5-10.1) Phosphorus Level 3.1 mg/dL (2.6-4.7) Magnesium Level 3.1 mg/dL (1.8-2.4) H Glucose (Fingerstick) 436 mg/dL (70-99) H 331 mg/dL (70-99) H Urine Collection Type Unknown Urine Color Yellow Urine Clarity Clear Urine pH 5.0 (<5.0-8.0) Urine Specific [place] >=1.030 (1.000-1.030) Urine Protein 30 mg/dL (NEG-TRACE) Urine Glucose (UA) >=1000 mg/dL (NEG) Urine Ketones (Stick) Negative mg/dL (NEG) Urine Blood Moderate (NEG) Urine Nitrite Negative (NEG) Urine Bilirubin Small (NEG) Urine Urobilinogen Dipstick 0.2 mg/dL (0.2 mg/dL) Urine Leukocyte Esterase Trace (NEG) Urine RBC 1-2 /HPF (0-2) Urine WBC 5-10 /HPF (0-4) Urine Squamous Epithelial Cells Mod /LPF Urine Amorphous Sediment Present /HPF Urine Bacteria Few /HPF (0-FEW) Urine Hyaline Casts Few /HPF Urine Granular Casts Moderate /HPF Urine Mucus Slight /LPF Test 11/09/19 14:39 11/09/19 15:50 11/09/19 16:10 11/09/19 20:07 Glucose (Fingerstick) 263 mg/dL (70-99) H 200 mg/dL (70-99) H 188 mg/dL (70-99) H Sodium Level 142 mmol/L (136-145) Potassium Level 5.0 mmol/L (3.5-5.1) Chloride Level 110 mmol/L (98-107) H Carbon Dioxide Level 26 mmol/L (21-32) Anion Gap 6 (6-14) Blood Urea Nitrogen 59 mg/dL (7-20) H Creatinine 2.5 mg/dL (0.6-1.0) H Estimated GFR (Cockcroft-Gault) 23.4 Glucose Level 213 mg/dL (70-99) H Calcium Level 8.5 mg/dL (8.5-10.1) Phosphorus Level 2.7 mg/dL (2.6-4.7) Magnesium Level 3.0 mg/dL (1.8-2.4) H Test 11/09/19 22:10 11/10/19 04:55 11/10/19 08:23 Glucose (Fingerstick) 191 mg/dL (70-99) H 368 mg/dL (70-99) H White Blood Count 12.0 x10^3/uL (4.0-11.0) H Red Blood Count 3.46 x10^6/uL (3.50-5.40) L Hemoglobin 10.3 g/dL (12.0-15.5) L Hematocrit 30.4 % (36.0-47.0) L Mean Corpuscular Volume 88 fL (79-100) # Mean Corpuscular Hemoglobin 30 pg (25-35) Mean Corpuscular Hemoglobin Concent 34 g/dL (31-37) Red Cell Distribution Width 13.3 % (11.5-14.5) Platelet Count 246 x10^3/uL (140-400) Sodium Level 140 mmol/L (136-145) Potassium Level 5.2 mmol/L (3.5-5.1) H Chloride Level 108 mmol/L (98-107) H Carbon Dioxide Level 22 mmol/L (21-32) Anion Gap 10 (6-14) Blood Urea Nitrogen 48 mg/dL (7-20) H Creatinine 2.2 mg/dL (0.6-1.0) H Estimated GFR (Cockcroft-Gault) 27.1 Glucose Level 331 mg/dL (70-99) H Calcium Level 7.8 mg/dL (8.5-10.1) L Phosphorus Level 2.3 mg/dL (2.6-4.7) L Magnesium Level 2.3 mg/dL (1.8-2.4) Laboratory Tests 11/10/19 04:55 Laboratory Tests 11/09/19 12:05 11/09/19 16:10 11/10/19 04:55 ECHOCARDIOGRAM ECHOCARDIOGRAM Conclusion 1. Normal heart rate and blood pressure response. 2. No chest pain. 3. No arrhythmias. 4. Borderline ECG changes. 5. Good exercise capacity. 6. Dilated left ventricle. 7. There was a large, intense, predominantly fixed mid-distal anterior, apical and septal defect with minimal, if any, ischemia. This probably represents an old infarct in a very large wrap around left anterior descending coronary artery. 8. Severe anterior, apical and septal hypokinesis. 9. EF - 31%. DATE: 06/14/14 1206 ASSESSMENT/PLAN ASSESSMENT/PLAN 1. Diarrhea, polyuria, polydyspia 2. Diabetes with significant hyperglycemia; BS 1480 upon arrival. New diagnosis 4. FARHAT, hyperkalemia; improving 5. CAD s/p PCI/stent. Clinically stable. CP free 6. Chronic systolic CHF with ICM; s/p AICD (Medtonic). Clinically compensated. Follows with Dr. Iverson of [facility] 7. Hypertension; low end. 8. Anemia, ID Recommendations Secondary prevention; ASA, statin, BB No ACEi with FARHAT Obtain cardiac records from [facility] IVFs; monitor closely for overload given CMP Avoid nephrotoxins DM management as per PCP Supportive care PATRIC STARKS MD 11/10/19 1725: CARDIAC CONSULT ASSESSMENT/PLAN ASSESSMENT/PLAN Patient seen and examined The patient reports feeling significantly better. Agree with our nurse practitioners assessment and plan. Uncontrolled diabetes. New diagnosis. As per the primary service. Acute kidney injury with hyperkalemia. Continuing present treatments including potassium replacement. History of coronary disease with previous stenting. No chest pain. Continuing to monitor. Cardiomyopathy with AICD in place. Checking all records. Will check an updated echo. Hypertension. Continue present medications and monitor. Thank you for allowing us to participate in the care of your patient. MARLYS MARTELL APRN Nov 10, 2019 11:42 PATRIC STARKS MD Nov 10, 2019 17:25
--- NOTE | 2019-11-10 13:28 | NUR ---
SS following up with discharge planning. SS reviewed pt chart and discussed with pt RN. Pt currently on room air. PT/OT ordered. Per RN, pt transferring to CVC unit today. SS will continue to follow for discharge planning.
--- NOTE | 2019-11-10 13:48 | PN ---
DATE: 11/10/2019 SUBJECTIVE: The patient is resting, slightly propped up in bed, in no apparent distress. On questioning her, denied any chest pain, shortness of breath. Did complain of cough, is mostly dry. Her kidney function is progressively improving. Her creatinine came down from 3.9 to 2.2 this morning. Her urine output yesterday was 525. PHYSICAL EXAMINATION: GENERAL: When I examined her, she looked pale, but no jaundice, cyanosis or thyromegaly. No jugular venous distention. No limb edema. VITAL SIGNS: Her heart rate was 65, blood pressure was 108/57, temperature was 98.1, respiratory rate was 18, and oxygen saturation was 100% on 2 liters of oxygen. HEAD, EYES, EARS, NOSE AND THROAT: Showed normocephalic, atraumatic. NECK: Supple. HEART: Showed normal first and second heart sounds with no gallop or murmur. CHEST: Clear to auscultation. No crepitation or rhonchi. ABDOMEN: Distended, soft, nontender. NEUROLOGIC: She is awake, alert, responding appropriately. All cranial nerves intact. She moves extremities without difficulty. She ambulates without assistance or assistive devices. Her intake over the last 24 hours was 1750, output was 525. LABORATORY DATA: Her lab work this morning showed a white cell count of 12,000, hemoglobin 10, hematocrit 30, MCV 88 and platelet count 246,000. Her chemistry showed a serum sodium 140, potassium 5.2, chloride 108, bicarbonate 22, anion gap of 10, BUN 48, creatinine 2.2, estimated GFR was 27 mL per minute. Her glucose was 331, calcium was 7.8, phosphorus 2.3, magnesium was 2.3. ASSESSMENT: 1. New-onset type 2 diabetes presenting with hyperosmolar nonketotic hyperglycemia. 2. Gjsem-fr-wuslodk kidney injury. Her creatinine in 03/2018 was 1.3 and when she came to the Emergency Room of [facility], her creatinine was 3.9, has dramatically improved. 3. Other medical problems include hypertension, hyperlipidemia, coronary artery disease, status post myocardial infarction in 2004 and 2005, she has had multiple stent deployment. She has also an AICD for probably ischemic cardiomyopathy. According to her, she is not known to have diabetes before. PLAN: My plan is to continue with IV fluid. I will start physical and occupational therapy. I did increase her insulin to 10 units of Humalog scheduled together with insulin sliding scale and also 10 units of Lantus insulin at nighttime. I will also consult the Cardiology team to evaluate her as she is known to have ischemic cardiomyopathy. SHAWN KRAMER MD DR: WILI/lebron JOB#: [id number] / [id number]
[2019-11-10] MEDS: ATORVASTATIN CALCIUM 40 MG TABLET. PO SCH (20:47)
[2019-11-10] MEDS: INSULIN GLARGINE SYRINGE. SQ SCH (20:52)
[2019-11-10] MEDS ORDERED: INSULIN GLARGINE SYRINGE. SQ SCH (21:00)
[2019-11-11] MEDS: IV NORMAL SALINE 1000ML BAG 1,000 ML IV SCH (01:16)
[2019-11-11] MEDS: ONDANSETRON PF 4 MG/2 ML VIAL. IVP PRN ×2 (01:17→09:02)
[2019-11-11 03:00] VITALS: BP 121/56
[2019-11-11 05:56] LABS: CHOLESTEROL/HDL RATIO 2.5
[2019-11-11 05:57] LABS: CALCIUM 7.6 mg/dL (8.5-10.1); CREATININE 1.5 mg/dL (0.6-1.0); GFR 42.2; MAGNESIUM 1.9 mg/dL (1.8-2.4); PHOSPHORUS 2.7 mg/dL (2.6-4.7); POTASSIUM 4.9 mmol/L (3.5-5.1)
[2019-11-11 07:00] VITALS: BP 134/60
[2019-11-11] MEDS: ASPIRIN CHEWABLE 81 MG TABLET. PO SCH (08:49)
[2019-11-11] MEDS: CARVEDILOL 12.5 MG TABLET. PO SCH ×2 (08:49→17:20)
[2019-11-11] MEDS: EZETIMIBE 10 MG TABLET. PO SCH (08:49)
[2019-11-11] MEDS: INSULIN LISPRO 300 UNITS/3 ML VIAL. SQ SCH ×6 (08:53→17:24)
[2019-11-11] MEDS: MAGNESIUM SULFATE 4GM 100 ML IV SCH (09:00)
--- NOTE | 2019-11-11 10:52 | PDOC ---
Renal-Progress Notes Subjective Notes Notes STILL HAS SOME BLURRY VISION, OVERALL BETTER History of Present Illness Hx of present illness IMPROVED Vitals Vitals Vital Signs Date Time Temp Pulse Resp B/P (MAP) Pulse Ox O2 Delivery O2 Flow Rate FiO2 11/11/19 08:49 66 134/60 11/11/19 08:00 Room Air 11/11/19 07:00 98.3 18 93 98.3 11/10/19 11:00 2.0 Weight Weight [ ] I.O. Intake and Output Intake and Output 11/11/19 07:00 Intake Total 2550 ml Output Total 1850 ml Balance 700 ml Intake Oral 1050 ml IV Total 1000 ml Other 500 ml Output Urine Total 1850 ml Labs Labs Laboratory Tests Test 11/10/19 11:40 11/10/19 17:13 11/10/19 20:40 11/11/19 05:20 Glucose (Fingerstick) 338 mg/dL (70-99) 237 mg/dL (70-99) 233 mg/dL (70-99) Sodium Level 138 mmol/L (136-145) Potassium Level 4.9 mmol/L (3.5-5.1) Chloride Level 107 mmol/L (98-107) Carbon Dioxide Level 21 mmol/L (21-32) Anion Gap 10 (6-14) Blood Urea Nitrogen 29 mg/dL (7-20) Creatinine 1.5 mg/dL (0.6-1.0) Estimated GFR (Cockcroft-Gault) 42.2 Glucose Level 227 mg/dL (70-99) Calcium Level 7.6 mg/dL (8.5-10.1) Phosphorus Level 2.7 mg/dL (2.6-4.7) Magnesium Level 1.9 mg/dL (1.8-2.4) Triglycerides Level 202 mg/dL (0-150) Cholesterol Level 96 mg/dL (0-200) LDL Cholesterol, Calculated 17 mg/dL (0-100) VLDL Cholesterol, Calculated 40 mg/dL (0-40) Non-HDL Cholesterol Calculated 57 mg/dL (0-129) HDL Cholesterol 39 mg/dL (40-60) Cholesterol/HDL Ratio 2.5 Test 11/11/19 07:50 Glucose (Fingerstick) 233 mg/dL (70-99) Micro Micro Microbiology 11/09/19 Urine Culture - Final, Complete Review of Systems Constitutional: yes: alert, oriented Ears/Nose/Throat: Yes: no symptom reported Eyes: Yes: no symptom reported Pulmonary: Yes no symptom reported Cardiovascular: Yes no symptom reported Gastrointestional: Yes: no symptom reported Genitourinary: Yes: no symptom reported Musculoskeletal: Yes: no symptom reported Skin: Yes no symptom reported Psychiatric/Neurological: Yes: no symptom reported Endocrine: Yes: no symptom reported Physical Exam General Appearance: no apparent distress Skin: warm Respiratory: bilateral CTA Heart: S1S2, RRR, no thrills Abdomen: soft, bowel sounds present Genitourinary: bladder flat Extremities: pulses present Neurology: alert, oriented Assessment Assessment IMP NEW ONSET DM DKA-RESOLVED ACIDEMIA-RESOLVED DEHYDRATION HYPOVOLEMIA HYPERKALEMIA-RESOLVED FARHAT-NEARLY RESOLVED HX OF [id number] PLAN ENC PO WILL SIGN OFF ANNIE YOUNG MD Nov 11, 2019 10:52
[2019-11-11 11:00] VITALS: BP 114/60
--- NOTE | 2019-11-11 11:27 | PN ---
DATE: 11/11/2019 SUBJECTIVE: The patient is resting, slightly propped up in bed, in no apparent distress. She is complaining of blurring of her vision and also generalized weakness, although generally much improved. Her kidney function steadily improving. Her creatinine is down to 1.5, which is not far away from her baseline. PHYSICAL EXAMINATION: GENERAL: When I examined her, she looked pale, but no jaundice, cyanosis or thyromegaly. No jugular venous distention. No lower limb edema. VITAL SIGNS: Her heart rate was 66, blood pressure was 134/60, temperature 98.3, respiratory rate was 18 and oxygen saturation was 93%. The rest of clinical examination is stable. Her intake over the last 24 hours was 8220, output was 1120. LABORATORY DATA: As of this morning, her white cell count was 12,000, hemoglobin 10, hematocrit 30, MCV 88 and platelet count 246,000. Serum sodium 138, potassium 4.9, chloride 107, bicarbonate 21, anion gap of 10, BUN 29, creatinine 1.5, estimated GFR was 42 mL per minute. Her glucose was 127, calcium was 7.6, phosphorus 2.7, magnesium was 1.9. Her serum triglycerides were 202, total cholesterol was 96, LDL was 17, VLDL was 40, HDL was 39, the ratio was 2.5. ASSESSMENT: 1. New-onset type 2 diabetes presenting with hyperosmolar nonketotic hyperglycemia, improving. 2. Acute on chronic kidney injury, improving. Her creatinine is down to 1.5. 3. She has multiple other medical problems including: A. Hypertension that is well controlled. B. Hyperlipidemia. C. Coronary artery disease, status post myocardial infarction in 2003 and 2005. D. She has had multiple stent deployed. E. Ischemic cardiomyopathy with poor ejection fraction, for which she has an AICD placed. PLAN: To discontinue her Waite catheter. Continue with physical and occupational therapy and plan to discharge her home tomorrow with probably home health. She declined a long term facility. SHAWN KRAMER MD DR: WILI/lebron JOB#: [id number] / [id number]
--- NOTE | 2019-11-11 13:33 | CARD ---
MR#: [id number] Date of Study: 11/11/2019 Ordering Physician: PATRIC HAWKINS, Referring Physician: PATRIC HAWKINS, Tech: Keli Penny APPROVED REPORT EXAM: Two-dimensional and M-mode echocardiogram with Doppler and color Doppler. Other Information Quality : AverageHR: 60bpm INDICATION Cardiomyopathy Surgery/Intervention Pacemaker: Date: 2014 RISK FACTORS Hypertension Diabetes 2D DIMENSIONS RVDd2.7 (2.9-3.5cm)Left Atrium(2D)2.8 (1.6-4.0cm) IVSd0.9 (0.7-1.1cm)Aortic Root(2D)3.2 (2.0-3.7cm) LVDd5.9 (3.9-5.9cm)LVOT Diameter2.1 (1.8-2.4cm) PWd1.0 (0.7-1.1cm)LVDs4.4 (2.5-4.0cm) FS (%) 24.3 %SV81.3 ml Aortic Valve AoV Peak Blaise.119.3cm/sAoV VTI20.8cm AO Peak GR.5.7mmHgLVOT Peak Blaise.116.6cm/s LVOT VTI 27.45cmAO Mean GR.3mmHg PREETI (VMAX)2.38rn9JUW (VTI)4.61cm2 Mitral Valve MV E Eywmitjh37.0cm/sMV DECEL [id number] MV A Qoqkiybb289.8cm/sMV RIK050ow E/A Ratio0.5MVA (PHT)1.95cm2 TDI E/Lateral E'8.8E/Medial E'11.7 Pulmonary Valve PV Peak Cigntrwm19.8cm/sPV Peak Grad.4mmHg Tricuspid Valve TR P. Zwcosauf078sr/sRAP [id number] TR Peak Gr.14kcFqBKJC85byXv Pulmonary Vein S1 Gdcczojs09.8cm/sD2 Cwcazaxw76.0cm/s PVa [id number] LEFT VENTRICLE The Left Ventricle is borderline dilated. There is normal left ventricular wall thickness. The left v entricular systolic function is mildly decreased. The Ejection Fraction is estimated at 40%. There is hypokinesis of the apical septal region. Transmitral Doppler flow pattern is Grade I-abnormal relaxa tion pattern. RIGHT VENTRICLE The right ventricle is normal size. There is normal right ventricular wall thickness. The right ventr icular systolic function is normal. There is a device lead in the right ventricle. ATRIA The left atrium is borderline dilated. The right atrium size is normal. The interatrial septum is int act with no evidence for an atrial septal defect or patent foramen ovale as noted on 2-D or Doppler i maging. AORTIC VALVE The aortic valve is normal in structure and function. Doppler and Color Flow revealed no significant aortic regurgitation. There is no significant aortic valvular stenosis. MITRAL VALVE The mitral valve is normal in structure and function. There is no evidence of mitral valve prolapse. There is no mitral valve stenosis. Doppler and Color-flow revealed trace mitral regurgitation. TRICUSPID VALVE The tricuspid valve is normal in structure and function. Doppler and Color Flow revealed trace tricus pid regurgitation with an estimated PAP of 27 mmHg. There is no tricuspid valve stenosis. PULMONIC VALVE The pulmonic valve is not well visualized. Doppler and Color Flow revealed no pulmonic valvular regur gitation. GREAT VESSELS The aortic root is normal in size. The IVC is normal in size and collapses >50% with inspiration. PERICARDIAL EFFUSION There is no evidence of significant pericardial effusion. Critical Notification Critical Value: No <Conclusion> The Left Ventricle is borderline dilated. The left ventricular systolic function is mildly decreased. The Ejection Fraction is estimated at 40%. There is hypokinesis of the apical septal region. Doppler and Color Flow revealed no significant aortic regurgitation. There is no significant aortic valvular stenosis. Doppler and Color-flow revealed trace mitral regurgitation. Doppler and Color Flow revealed trace tricuspid regurgitation with an estimated PAP of 27 mmHg. Signed by : Patric Hawkins MD Electronically Approved : 11/11/2019 13:32:54
--- NOTE | 2019-11-11 14:27 | PDOC ---
PROGRESS NOTES Subjective Subjective Patient seen and examined Objective Objective Vital Signs Date Time Temp Pulse Resp B/P (MAP) Pulse Ox O2 Delivery O2 Flow Rate FiO2 11/11/19 11:00 98.1 70 18 114/60 (78) 92 Room Air 98.1 11/10/19 11:00 2.0 Intake and Output 11/11/19 07:00 Intake Total 2550 ml Output Total 1850 ml Balance 700 ml Intake Oral 1050 ml IV Total 1000 ml Other 500 ml Output Urine Total 1850 ml Physical Exam Abdomen: Normal bowel sounds Heart: Regular rate General: mild distress Lungs: Clear to auscultation Assessment Assessment Diabetes with significant hyperglycemia; BS 1480 upon arrival. Improved today. Looking and feeling better. FARHAT, hyperkalemia; improving CAD s/p PCI/stent. Clinically stable. CP free Chronic systolic CHF with ICM; s/p AICD (Medton[facility]). Clinically compensated. Follows with Dr. Iverson of [facility]. ECHO pending. Hypertension; controlled PATRIC STARKS MD 11/10/19 1725: CARDIAC CONSULT PATRIC STARKS MD 11/10/19 1725: CARDIAC CONSULT Comment Review of Relevant I have reviewed the following items tonya (where applicable) has been applied. Labs Laboratory Tests Test 11/09/19 14:39 11/09/19 15:50 11/09/19 16:10 11/09/19 20:07 Glucose (Fingerstick) 263 mg/dL (70-99) 200 mg/dL (70-99) 188 mg/dL (70-99) Sodium Level 142 mmol/L (136-145) Potassium Level 5.0 mmol/L (3.5-5.1) Chloride Level 110 mmol/L (98-107) Carbon Dioxide Level 26 mmol/L (21-32) Anion Gap 6 (6-14) Blood Urea Nitrogen 59 mg/dL (7-20) Creatinine 2.5 mg/dL (0.6-1.0) Estimated GFR (Cockcroft-Gault) 23.4 Glucose Level 213 mg/dL (70-99) Calcium Level 8.5 mg/dL (8.5-10.1) Phosphorus Level 2.7 mg/dL (2.6-4.7) Magnesium Level 3.0 mg/dL (1.8-2.4) Test 11/09/19 22:10 11/10/19 04:55 11/10/19 08:23 11/10/19 11:40 Glucose (Fingerstick) 191 mg/dL (70-99) 368 mg/dL (70-99) 338 mg/dL (70-99) White Blood Count 12.0 x10^3/uL (4.0-11.0) Red Blood Count 3.46 x10^6/uL (3.50-5.40) Hemoglobin 10.3 g/dL (12.0-15.5) Hematocrit 30.4 % (36.0-47.0) Mean Corpuscular Volume 88 fL (79-100) Mean Corpuscular Hemoglobin 30 pg (25-35) Mean Corpuscular Hemoglobin Concent 34 g/dL (31-37) Red Cell Distribution Width 13.3 % (11.5-14.5) Platelet Count 246 x10^3/uL (140-400) Sodium Level 140 mmol/L (136-145) Potassium Level 5.2 mmol/L (3.5-5.1) Chloride Level 108 mmol/L (98-107) Carbon Dioxide Level 22 mmol/L (21-32) Anion Gap 10 (6-14) Blood Urea Nitrogen 48 mg/dL (7-20) Creatinine 2.2 mg/dL (0.6-1.0) Estimated GFR (Cockcroft-Gault) 27.1 Glucose Level 331 mg/dL (70-99) Calcium Level 7.8 mg/dL (8.5-10.1) Phosphorus Level 2.3 mg/dL (2.6-4.7) Magnesium Level 2.3 mg/dL (1.8-2.4) Test 11/10/19 17:13 11/10/19 20:40 11/11/19 05:20 11/11/19 07:50 Glucose (Fingerstick) 237 mg/dL (70-99) 233 mg/dL (70-99) 233 mg/dL (70-99) Sodium Level 138 mmol/L (136-145) Potassium Level 4.9 mmol/L (3.5-5.1) Chloride Level 107 mmol/L (98-107) Carbon Dioxide Level 21 mmol/L (21-32) Anion Gap 10 (6-14) Blood Urea Nitrogen 29 mg/dL (7-20) Creatinine 1.5 mg/dL (0.6-1.0) Estimated GFR (Cockcroft-Gault) 42.2 Glucose Level 227 mg/dL (70-99) Calcium Level 7.6 mg/dL (8.5-10.1) Phosphorus Level 2.7 mg/dL (2.6-4.7) Magnesium Level 1.9 mg/dL (1.8-2.4) Triglycerides Level 202 mg/dL (0-150) Cholesterol Level 96 mg/dL (0-200) LDL Cholesterol, Calculated 17 mg/dL (0-100) VLDL Cholesterol, Calculated 40 mg/dL (0-40) Non-HDL Cholesterol Calculated 57 mg/dL (0-129) HDL Cholesterol 39 mg/dL (40-60) Cholesterol/HDL Ratio 2.5 Test 11/11/19 11:37 Glucose (Fingerstick) 290 mg/dL (70-99) Laboratory Tests Test 11/10/19 17:13 11/10/19 20:40 11/11/19 05:20 11/11/19 07:50 Glucose (Fingerstick) 237 mg/dL (70-99) 233 mg/dL (70-99) 233 mg/dL (70-99) Sodium Level 138 mmol/L (136-145) Potassium Level 4.9 mmol/L (3.5-5.1) Chloride Level 107 mmol/L (98-107) Carbon Dioxide Level 21 mmol/L (21-32) Anion Gap 10 (6-14) Blood Urea Nitrogen 29 mg/dL (7-20) Creatinine 1.5 mg/dL (0.6-1.0) Estimated GFR (Cockcroft-Gault) 42.2 Glucose Level 227 mg/dL (70-99) Calcium Level 7.6 mg/dL (8.5-10.1) Phosphorus Level 2.7 mg/dL (2.6-4.7) Magnesium Level 1.9 mg/dL (1.8-2.4) Triglycerides Level 202 mg/dL (0-150) Cholesterol Level 96 mg/dL (0-200) LDL Cholesterol, Calculated 17 mg/dL (0-100) VLDL Cholesterol, Calculated 40 mg/dL (0-40) Non-HDL Cholesterol Calculated 57 mg/dL (0-129) HDL Cholesterol 39 mg/dL (40-60) Cholesterol/HDL Ratio 2.5 Test 11/11/19 11:37 Glucose (Fingerstick) 290 mg/dL (70-99) Microbiology 11/09/19 Urine Culture - Final, Complete Medications Current Medications Insulin Human Regular 100 unit/ Sodium Chloride 101 ml @ 0 mls/hr CONT PRN IV SEE I/O RECORD Last administered on 11/09/19at 08:03; Start 11/09/19 at 04:30 Sodium Chloride 1,000 ml @ 250 mls/hr Q4H IV Last administered on 11/09/19at 04:30; Start 11/09/19 at 04:30; Stop 11/09/19 at 09:04; Status DC Sodium Chloride 1,000 ml @ 1,000 mls/hr 1X ONCE IV Last administered on 11/09/19at 04:00; Start 11/09/19 at 04:30; Stop 11/09/19 at 05:29; Status DC Aspirin (Aspirin Chewable) 81 mg [id number] PO Last administered on 11/11/19at 08:49; Start 11/09/19 at 08:00 Atorvastatin Calcium (Lipitor) 80 mg QHS PO Last administered on 11/10/19at 20:47; Start 11/09/19 at 21:00 Carvedilol (Coreg) 25 mg BIDWMEALS PO Last administered on 11/11/19at 08:49; Start 11/09/19 at 08:00 EZETIMIBE (Zetia) 10 mg DAILY PO Last administered on 11/11/19at 08:49; Start 11/09/19 at 09:00 Sodium Chloride 1,000 ml @ 1,000 mls/hr 1X ONCE IV Last administered on 11/09/19at 06:28; Start 11/09/19 at 05:00; Stop 11/09/19 at 05:59; Status DC Potassium Chloride/Water 100 ml @ 100 mls/hr PRN Q1HR PRN IV SEE COMMENTS; Start 11/09/19 at 06:30; Stop 11/09/19 at 19:12; Status DC Potassium Chloride/Water 100 ml @ 100 mls/hr PRN Q1HR PRN IV SEE COMMENTS; Start 11/09/19 at 06:30; Stop 11/09/19 at 19:12; Status DC Potassium Chloride/Water 100 ml @ 100 mls/hr PRN Q1HR PRN IV SEE COMMENTS; Start 11/09/19 at 06:30; Stop 11/09/19 at 19:12; Status DC Magnesium Sulfate 100 ml @ 25 mls/hr DAILY IV ; Start 11/09/19 at 09:00; Stop 11/12/19 at 08:59 Sodium Bicarbonate 50 meq/Sodium Chloride 1,050 ml @ 500 mls/hr Q2H6M PRN IV SEE COMMENTS; Start 11/09/19 at 06:23; Stop 11/09/19 at 19:12; Status DC Sodium Phosphate 40 mmol/Sodium Chloride 513.3333 ml @ 83.3 mls/hr 1X PRN PRN IV SEE COMMENTS; Start 11/09/19 at 06:30; Stop 11/09/19 at 19:12; Status DC Sodium Phosphate 20 mmol/Sodium Chloride 256.6667 ml @ 62.5 mls/hr 1X PRN PRN IV SEE COMMENTS; Start 11/09/19 at 06:30; Stop 11/09/19 at 19:12; Status DC Sodium Phosphate 10 mmol/Sodium Chloride 253.3333 ml @ 25 mls/hr 1X PRN PRN IV SEE COMMENTS; Start 11/09/19 at 06:30; Stop 11/09/19 at 19:12; Status DC Sodium Chloride 1,000 ml @ 250 mls/hr Q4H IV Last administered on 11/09/19at 12:54; Start 11/09/19 at 09:15; Stop 11/09/19 at 19:12; Status DC Potassium Chloride/Water 100 ml @ 100 mls/hr Q1H IV Last administered on 11/09/19at 10:17; Start 11/09/19 at 10:00; Stop 11/09/19 at 11:59; Status DC Ondansetron HCl (Zofran) 4 mg PRN Q6HRS PRN IVP NAUSEA/VOMITING Last administered on 11/11/19at 09:02; Start 11/09/19 at 09:45 Insulin Glargine (Lantus Syringe) 20 unit QHS SQ Last administered on 11/09/19at 15:53; Start 11/09/19 at 16:00; Stop 11/10/19 at 11:41; Status DC Insulin Human Lispro (HumaLOG) 0-9 UNITS TIDWMEALS SQ Last administered on 11/11/19at 12:42; Start 11/09/19 at 17:00 Dextrose (Dextrose 50%-Water Syringe) 12.5 gm PRN Q15MIN PRN IV SEE COMMENTS; Start 11/09/19 at 15:30 Sodium Chloride 1,000 ml @ 100 mls/hr Q10H IV Last administered on 11/11/19at 01:16; Start 11/09/19 at 15:30; Stop 11/11/19 at 10:08; Status DC Insulin Human Lispro (HumaLOG) 10 units TIDAC SQ Last administered on 11/11/19at 12:41; Start 11/10/19 at 11:30 Insulin Glargine (Lantus Syringe) 10 unit QHS SQ ; Start 11/10/19 at 21:00; Stop 11/10/19 at 12:33; Status DC Insulin Glargine (Lantus Syringe) 20 unit QHS SQ Last administered on 11/10/19at 20:52; Start 11/10/19 at 21:00 Vitals/I & O Vital Sign - Last 24 Hours 11/10/19 11/10/19 11/10/19 11/10/19 14:50 17:29 19:00 19:29 Temp 97.4 97.5 97.4 97.5 Pulse 65 65 70 Resp 18 18 B/P (MAP) 122/59 (80) 122/59 115/61 (79) Pulse Ox 98 97 O2 Delivery Room Air Room Air Room Air 11/10/19 11/11/19 11/11/19 11/11/19 23:00 03:00 07:00 08:00 Temp 98.2 98.1 98.3 98.2 98.1 98.3 Pulse 64 68 66 Resp 18 18 18 B/P (MAP) 121/66 (84) 121/56 (77) 134/60 (84) Pulse Ox 96 94 93 O2 Delivery Room Air Room Air Room Air Room Air 11/11/19 11/11/19 08:49 11:00 Temp 98.1 98.1 Pulse 66 70 Resp 18 B/P (MAP) 134/60 114/60 (78) Pulse Ox 92 O2 Delivery Room Air Intake and Output 11/10/19 11/10/19 11/11/19 15:00 23:00 07:00 Intake Total 1200 ml 350 ml 1000 ml Output Total 650 ml 1200 ml Balance 550 ml 350 ml -200 ml PATRIC STARKS MD Nov 11, 2019 14:27
--- NOTE | 2019-11-11 14:57 | NUR ---
SS following up with discharge planning. SS reviewed pt chart and discussed with pt RN. Pt is currently on room air. PT/OT recommended home independent. SS met with pt to discuss home healthcare. Pt declined home healthcare reporting that she comes from a family of thirteen and her family will provide for her. SS will continue to follow for discharge planning.
[2019-11-11 15:00] VITALS: BP 102/64
[2019-11-11 19:40] VITALS: BP 136/69
[2019-11-11] MEDS: ATORVASTATIN CALCIUM 40 MG TABLET. PO SCH (20:39)
[2019-11-11] MEDS: INSULIN GLARGINE SYRINGE. SQ SCH (20:46)
[2019-11-11 23:45] VITALS: BP 116/62
[2019-11-12 03:24] LABS: HEMATOCRIT 27.6 % (36.0-47.0); HEMOGLOBIN 9.6 g/dL (12.0-15.5); RED BLOOD COUNT 3.17 x10^6/uL (3.50-5.40); RED CELL DISTRIBUTION WIDTH 13.3 % (11.5-14.5); WHITE BLOOD COUNT 7.3 x10^3/uL (4.0-11.0)
[2019-11-12 03:39] LABS: ALBUMIN/GLOBULIN RATIO 0.9 (1.0-1.7); CALCIUM 8.4 mg/dL (8.5-10.1); CREATININE 1.4 mg/dL (0.6-1.0); GFR 45.7; POTASSIUM 4.1 mmol/L (3.5-5.1); TOTAL BILIRUBIN 0.3 mg/dL (0.2-1.0); TOTAL PROTEIN 6.4 g/dL (6.4-8.2)
[2019-11-12 03:45] VITALS: BP_SYST 130; BP_SYST 143; BP_DIAS 68; BP_DIAS 74
[2019-11-12 07:00] VITALS: BP 120/65
[2019-11-12] MEDS: EZETIMIBE 10 MG TABLET. PO SCH (08:56)
[2019-11-12] MEDS: ASPIRIN CHEWABLE 81 MG TABLET. PO SCH (08:57)
[2019-11-12] MEDS: ONDANSETRON PF 4 MG/2 ML VIAL. IVP PRN (09:01)
[2019-11-12] MEDS: CARVEDILOL 12.5 MG TABLET. PO SCH ×2 (09:01→17:57)
[2019-11-12] MEDS: INSULIN LISPRO 300 UNITS/3 ML VIAL. SQ SCH ×6 (09:06→17:00)
[2019-11-12] MEDS ORDERED: CARV25TA2 PO (10:35)
[2019-11-12] MEDS ORDERED: ATOR80TA72 PO (10:35)
[2019-11-12] MEDS ORDERED: INSU100I13 SQ (10:35)
[2019-11-12] MEDS ORDERED: EZET10TA20 PO (10:35)
[2019-11-12] MEDS ORDERED: ASPI-630 PO (10:35)
[2019-11-12] MEDS ORDERED: INSU100C4 SQ (10:35)
[2019-11-12 11:00] VITALS: BP 120/62
--- NOTE | 2019-11-12 11:14 | DS ---
DATE OF DISCHARGE: 11/12/2019 HOSPITAL COURSE: The patient is resting, slightly propped up in bed, in no apparent distress. She continued to complain of blurring of her vision and also somewhat dizzy and unsteady on her feet. I suggested that she should perhaps consider going to a rehab center where she can get some physical therapy and also get her blood sugar better controlled with the nursing side, but she said that her sister is an [employer]. She will be living with her. I recommended that she should not change her eyeglasses and wait for a while until her blood sugar settles down. PHYSICAL EXAMINATION: GENERAL: When I examined her, she looked well and was clearly in no apparent respiratory distress. No pallor, jaundice, cyanosis or thyromegaly. No jugular venous distension. No limb edema. VITAL SIGNS: Her heart rate was 67, blood pressure was 120/65, temperature was 98.5, respiratory rate was 18 and oxygen saturation was 96%. The rest of clinical exam is stable, has not really changed. Her intake over the last 24 hours was 3250, output was 1850. LABORATORY DATA: As of this morning, her white cell count was 7300, hemoglobin 9.6, hematocrit 27.6, MCV 87 and platelet count of 193,000. Her chemistry showed a serum sodium of 139, potassium 4.2, chloride 107, bicarbonate 25, anion gap of 7, BUN 25, creatinine 1.4, estimated GFR was 45 mL per minute. Her glucose 110, calcium of 8.4. Total bilirubin, AST, ALT, alkaline phosphatase were normal. Total protein was 6.4, albumin 3. DISCHARGE MEDICATIONS: She was discharged home to continue on aspirin 81 mg once a day, atorvastatin 80 mg at bedtime, carvedilol 25 mg twice a day, Zetia 10 mg daily. She is on Humalog insulin 10 units before meals and Lantus insulin 20 units at bedtime. FINAL DISCHARGE DIAGNOSES: 1. New onset type 2 diabetes mellitus, presenting with hyperosmolar nonketotic hyperglycemia, resolved. 2. Acute on chronic kidney injury, improving. Her creatinine is down to 1.4. 3. She has multiple other medical problems including: A. Hypertension is well controlled. B. Hyperlipidemia. C. Coronary artery disease, status post myocardial infarction in 2003 and 2005. D. She has had multiple stents deployed. D. She has ischemic cardiomyopathy with poor ejection fraction, for which she has an AICD placed. Her echocardiogram showed her left ventricle is borderline dilated, left ventricular systolic function is mildly decreased, her ejection fraction estimated at 40%. There is hypokinesis in the apical septal region. Doppler and color flow revealed no significant aortic regurgitation and no significant aortic valvular stenosis, trace mitral regurgitation and trace tricuspid regurgitation and estimated pulmonary artery pressure of 27 mmHg. SHAWN KRAMER MD DR: WILI/lebron JOB#: [id number] / [id number]
[2019-11-12 15:00] VITALS: BP 118/67
[2019-11-12 19:50] VITALS: BP 126/65
[2019-11-12] MEDS: ATORVASTATIN CALCIUM 40 MG TABLET. PO SCH (21:30)
[2019-11-12] MEDS: INSULIN GLARGINE SYRINGE. SQ SCH (21:35)
[2019-11-12 23:10] VITALS: BP 127/69
[2019-11-13 03:50] VITALS: BP 116/63
[2019-11-13 07:00] VITALS: BP 143/73
[2019-11-13] MEDS: ASPIRIN CHEWABLE 81 MG TABLET. PO SCH (08:32)
[2019-11-13] MEDS: EZETIMIBE 10 MG TABLET. PO SCH (08:32)
[2019-11-13] MEDS: CARVEDILOL 12.5 MG TABLET. PO SCH (08:33)
[2019-11-13] MEDS: INSULIN LISPRO 300 UNITS/3 ML VIAL. SQ SCH ×4 (08:40→12:00)
[2019-11-13 11:00] VITALS: BP 123/82
--- NOTE | 2019-11-13 14:08 | NUR ---
Discharge Note: SADI WALLS Discharge instructions and discharge home medications reviewed with Patient and a copy given. All questions have been answered and understanding verbalized. Discharge instructions and handouts were give. Discontinued IV lines. Patient discharged to home with staff and family via wheelchair. Denies further needs at this time.
== END 2019-11-13 14:10 | disposition home or self-care (01) | DRG 637 ==
LOC: 1 WEST ICU 03:41 → 2 NORTH 11-10 14:26
PROVIDERS: ADMIT Internal Medicine; ATTEND Internal Medicine
DX: E11.00 Type 2 diabetes mellitus with hyperosmolarity without nonketotic hyperglycemic-hyperosmolar coma (NKHHC) (principal); N17.0 Acute kidney failure with tubular necrosis; E87.1 Hypo-osmolality and hyponatremia; I50.22 Chronic systolic (congestive) heart failure; I13.0 Hypertensive heart and chronic kidney disease with heart failure and stage 1 through stage 4 chronic kidney disease, or unspecified chronic kidney disease; E11.10 Type 2 diabetes mellitus with ketoacidosis without coma; E87.5 Hyperkalemia; E78.5 Hyperlipidemia, unspecified; I25.10 Atherosclerotic heart disease of native coronary artery without angina pectoris; E86.0 Dehydration; E86.1 Hypovolemia; I25.5 Ischemic cardiomyopathy; D64.9 Anemia, unspecified; N18.9 Chronic kidney disease, unspecified; Z60.2 Problems related to living alone; E11.22 Type 2 diabetes mellitus with diabetic chronic kidney disease; Z95.5 Presence of coronary angioplasty implant and graft; Z95.810 Presence of automatic (implantable) cardiac defibrillator; I25.2 Old myocardial infarction; Z88.0 Allergy status to penicillin; Z88.5 Allergy status to narcotic agent; Z90.721 Acquired absence of ovaries, unilateral; Z83.3 Family history of diabetes mellitus; Z80.9 Family history of malignant neoplasm, unspecified; Z82.49 Family history of ischemic heart disease and other diseases of the circulatory system
CPT/HCPCS: 36415; 80048; 80053; 80061; 80076; 81001; 82550; 82947; 82962; 83036; 83605; 83735; 84100; 85025; 85027; 87086; 93306; A4314; J1815; J2405; J3480; J3490; J7030; G0378